=== PATIENT | male | born 1990 | race Caucasian/White ===

== ENCOUNTER → 2016-12-06 | Outpatient (CLI) | payer OTHER ==
--- NOTE | 2016-12-06 10:03 | MR ---
EXAMINATION TYPE: MR brown wo con DATE OF EXAM: 12/06/2016 9:31 AM COMPARISON: NONE HISTORY: cervicalgia, lumbago Multiplanar MultiSpin echo imaging of the cervical spine was performed. Comparison: none C2-C3: No evidence for degenerative disc disease. No disc bulge/herniation or protrusion. No Canal stenosis. Foramina are patent bilaterally. C3-C4: No evidence for degenerative disc disease. No disc bulge/herniation or protrusion. No Canal stenosis. Foramina are patent bilaterally. C4-C5: No evidence for degenerative disc disease. No disc bulge/herniation or protrusion. No Canal stenosis. Foramina are patent bilaterally. C5-C6: There is mild disc desiccation noted with mild posterior disc bulge. No adelaida herniation or pr otrusion. No evidence for central stenosis or foraminal encroachment. C6-C7: There is mild disc desiccation noted with mild posterior disc bulge. No adelaida herniation or pr otrusion. No evidence for central stenosis or foraminal encroachment. C7-T1: No evidence for degenerative disc disease. No disc bulge/herniation or protrusion. No Canal stenosis. Foramina are patent bilaterally. Cervical segments are intact. There is normal alignment. Cervical spinal cord is of normal signal. Craniovertebral junction relationships are within normal limits. IMPRESSION: 1. Mild degenerative disc disease and disc bulging as noted. EXAMINATION TYPE: MR stephanie doyle con DATE OF EXAM: 12/06/2016 9:31 AM COMPARISON: NONE HISTORY: cervicalgia, lumbago Multiplanar, MultiSpin echo imaging of the lumbar spine was performed. L1-L2: Normal disc appearance without desiccation. No herniation, protrusion or disc bulging. No ca nal stenosis is present. Foramina are patent bilaterally. L2-L3: Normal disc appearance without desiccation. No herniation, protrusion or disc bulging. No ca nal stenosis is present. Foramina are patent bilaterally. L3-L4: Normal disc appearance without desiccation. No herniation, protrusion or disc bulging. No ca nal stenosis is present. Foramina are patent bilaterally. L4-L5: Normal disc appearance without desiccation. No herniation, protrusion or disc bulging. No ca nal stenosis is present. Foramina are patent bilaterally. L5-S1: Moderate disc desiccation identified. Mild posterior central disc herniation without extrusion . Mild effacement ventral thecal sac. No definite lateral recess stenosis or foraminal encroachment. Lumbar segments are intact. No paraspinal masses are identified. Conus medullaris has a normal appe arance. IMPRESSION: 1. Degenerative disc disease at L5-S1 with milder disc herniation identified.
== END | disposition home or self-care (01) ==
LOC: RADMRIMAIN 08:45
PROVIDERS: ATTEND Psychiatry & Neurology Neurology
DX: M50.30 Other cervical disc degeneration, unspecified cervical region (principal); M50.222 Other cervical disc displacement at C5-C6 level; M51.37 Other intervertebral disc degeneration, lumbosacral region; M51.27 Other intervertebral disc displacement, lumbosacral region
CPT/HCPCS: 72141; 72148

== ENCOUNTER → 2017-04-18 | Outpatient (CLI) | payer OTHER ==
[2017-04-18 14:17] LABS: Basophils # (A) 0.1 k/uL (0-0.2); Basophils % (A) 1 %; CH 30.3; CHCM 34.2; Eosinophils # (A) 0.7 k/uL (0-0.7); Eosinophils % (A) 9 %; HCT 45.3 % (39.0-53.0); HGB 15.5 gm/dL (13.0-17.5); Luc # (Auto) 0.13; Luc % (Auto) 2; Lymphocytes # (A) 2.6 k/uL (1.0-4.8); Lymphocytes % (A) 36 %; MCH 30.5 pg (25.0-35.0); MCHC 34.3 g/dL (31.0-37.0); MCV 89.1 fL (80.0-100.0); Monocytes # (A) 0.4 k/uL (0-1.0); Monocytes % (A) 5 %; Neutrophils # (A) 3.5 k/uL (1.3-7.7); Neutrophils % (A) 47 %; RBC 5.09 m/uL (4.30-5.90); RDW 14.9 % (11.5-15.5); WBC 7.4 k/uL (3.8-10.6); WBC (Perox) 7.28
[2017-04-18 14:21] LABS: ALT 38 U/L (21-72); AST 28 U/L (17-59); Alkaline Phosphatase 78 U/L (38-126); Anion Gap 10 mmol/L; Blood Urea Nitrogen 13 mg/dL (9-20); C Reactive Protein <5.0 mg/L (<10.0); Calcium 9.2 mg/dL (8.4-10.2); Carbon Dioxide 25 mmol/L (22-30); Chloride 107 mmol/L (98-107); Creatine Kinase 194 U/L (55-170); Glucose 77 mg/dL (74-99); Non-African American GFR(MDRD) >60 (>60 ml/min/1.73 sqM); Potassium 4.3 mmol/L (3.5-5.1); Sodium 142 mmol/L (137-145); Total Bilirubin 0.3 mg/dL (0.2-1.3); Total Protein 6.3 g/dL (6.3-8.2)
[2017-04-18 15:17] LABS: Erythrocyte Sedimentation Rate 2 mm/hr (0-15)
== END | disposition home or self-care (01) ==
LOC: LABWHC1 13:00
PROVIDERS: ATTEND Psychiatry & Neurology Neurology
DX: M79.1 Myalgia (principal); R53.83 Other fatigue
CPT/HCPCS: 36415; 80053; 82085; 82550; 85025; 85652; 86140

== ENCOUNTER → 2017-11-18 | Outpatient (CLI) | payer OTHER ==
--- NOTE | 2017-11-18 07:52 | MR ---
EXAMINATION TYPE: MR brain wo con DATE OF EXAM: 11/18/2017 COMPARISON: NONE HISTORY: Muscle weakness - Bilateral leg weakness TECHNIQUE: Multiplanar, multisequence images of the brain and brainstem is performed without IV contrast. FINDINGS: Diffusion weighted images demonstrate no evidence of a recent infarct or other diffusion ab normality. 4 punctate foci of T2/FLAIR hyperintensity are seen within the subcortical white matter ( 2 within the left frontal lobe, one within the right frontal lobe, and one within the right parietal lobe all sub-3 mm). No surrounding vasogenic edema is seen. These are not in a pericallosal distribut ion. There is no extra-axial fluid collection. Incidentally noted prominent right periventricular spa ce is seen inferior to the basal ganglia. The ventricular system and cisternal spaces are normal in s ize and appearance. The brain volume is age appropriate. Midline structures demonstrate normal morphology. The craniocervical junction appears within normal limits. The dural venous sinuses appear patent. Minimal mucosal thickening is seen within the right m axillary sinus. The remaining visualized sinuses are clear and the globes are intact. IMPRESSION: 1. 4 punctate sub-3 mm foci of nonspecific white matter change. These are in an atypical distribution for demyelinating disease. Other considerations are for vasculitides or metabolic disorders. 2. Mucosal thickening within the right maxillary sinus.
== END | disposition home or self-care (01) ==
LOC: RADMRIMAIN 06:55
PROVIDERS: ATTEND Psychiatry & Neurology Neurology
DX: G37.9 Demyelinating disease of central nervous system, unspecified (principal); R90.82 White matter disease, unspecified; Z88.0 Allergy status to penicillin; Z88.1 Allergy status to other antibiotic agents
CPT/HCPCS: 70551

== ENCOUNTER 2018-09-11 05:51 | Emergency (ER) | payer OTHER ==
[2018-09-11 05:58] VITALS: BP 134/91; PULSE 81; RESP 18; TEMP 97.7
[2018-09-11] MEDS ORDERED: predniSONE 20 MG TAB PO STA (06:18)
[2018-09-11] MEDS ORDERED: KETOROLAC 30 MG/ML 1 ML VIAL IM STA (06:18)
[2018-09-11] MEDS ORDERED: ORPHENADRINE 30 MG/ML 2 ML VIAL IM STA (06:18)
--- NOTE | 2018-09-11 06:29 | ED ---
Back Pain HPI - General Chief Complaint: Back Pain/Injury Stated Complaint: Back pain Time Seen by Provider: 09/11/18 06:04 Source: patient Limitations: no limitations - History of Present Illness Initial Comments: Melina and is a 28-year-old male with a past history of chronic back pain and leg weakness for which she follows with neurology Dr. Martinez, patient has had multiple imaging modalities including MRI in the past which is revealed an L5- S1 disc herniation. Patient's treated in the past with epidural injections. He reports that he has chronic pain in his back but that since Saturday he has had worsening pain. He describes the pain as pressure like and aching radiating to his bilateral buttocks. Patient reports he has taken his home naproxen and Toradol on Saturday without relief of the pain. He reports that he is unable to get comfortable in bed last night due to the pain and was awake most of the night which prompted him to come to the emergency department for further evaluation. Patient denies any associated symptoms including fevers, chills, numbness in the lower extremities, change in bowel or bladder habits. Patient describes this pain is similar to previous pain but worse. Patient cannot identify any positive factors, he denies any recent injury or significant heavy lifting though he does have a very physically demanding job this is not changed recently. - Related Data Previous Rx's Medication Instructions Recorded Lidocaine 5% Patch [Lidoderm] 1 patch TOPICAL DAILY #30 patch 09/11/18 predniSONE [Deltasone] 40 mg PO DAILY 5 Days #10 tablet 09/11/18 Allergies Allergy/AdvReac Type Severity Reaction Status Date / Time amoxicillin Allergy Rash/Hives Verified 09/11/18 05:58 cephalexin [From Keflex] Allergy Rash/Hives Verified 09/11/18 05:58 Review of Systems ROS Statement: Those systems with pertinent positive or pertinent negative responses have been documented in the HPI. ROS Other: All systems not noted in ROS Statement are negative. Past Medical History Additional Past Medical History / Comment(s): back pain; meningitis; pneumothorax History of Any Multi-Drug Resistant Organisms: None Reported Past Surgical History: No Surgical Hx Reported Past Psychological History: No Psychological Hx Reported Smoking Status: Current every day smoker Past Alcohol Use History: None Reported Past Drug Use History: None Reported General Exam - General Exam Comments Initial Comments: Physical Exam GENERAL: Patient is well-developed and well-nourished. Patient is nontoxic and well- hydrated and is in no distress. HENT: Normocephalic, Atraumatic. EYES: PERRL, EOMI PULMONARY: Unlabored respirations. No audible rales rhonchi or wheezing was noted. CARDIOVASCULAR: There is a regular rate and rhythm without any murmurs gallops or rubs. ABDOMEN: Soft and nontender with normal bowel sounds. SKIN: Skin is clear with no lesions or rashes and otherwise unremarkable. : Deferred NEUROLOGIC: Patient is alert and oriented x3. Moving all extremities spontaneously Normal strength bilateral lower extremities Sensation bilateral lower extremities Normal patellar reflexes bilaterally MUSCULOSKELETAL: Normal extremities with adequate strength and full range of motion. No lower extremity swelling or edema. No calf tenderness. Paraspinal hypertonicity in the lumbar region greater on the right than the left PSYCHIATRIC: Normal psychiatric evaluation. Limitations: no limitations Limitations: no limitations Course Vital Signs 09/11/18 05:54 Temperature 97.7 F Pulse Rate 81 Respiratory 18 Rate Blood Pressure 134/91 O2 Sat by Pulse 99 Oximetry Medical Decision Making - Medical Decision Making The patient was seen and evaluated patient has a long history of chronic back pain for which he follows with neurology Patient reports worsening of his chronic back pain, denies any injury or excessive heavy lifting though he does have a very physically demanding job Patient reports pain associated. This morning he hadn't slept well and couldn' t work Physical exam is unremarkable, no signs of cauda equina, no red flag symptoms with this back pain History with anti-inflammatories, Lidoderm Patient not taking his anti-inflammatories regularly, advised to take them regularly as well as with muscle relaxers and follow up with his neurologist. Patient agreeable to plan I'll turn parameters were discussed questions again and care were answered and patient discharged home in stable condition Disposition Clinical Impression: Mechanical back pain Disposition: HOME SELF-CARE Instructions: Acute Low Back Pain (ED) Prescriptions: Lidocaine 5% Patch [Lidoderm] 1 patch TOPICAL DAILY #30 patch predniSONE [Deltasone] 40 mg PO DAILY 5 Days #10 tablet Is patient prescribed a controlled substance at d/c from ED?: No Referrals: Deborah Wilburn MD [Primary Care Provider] - 1-2 days Crow Martinez MD [STAFF PHYSICIAN] - 1-2 days Time of Disposition: 06:40
== END 2018-09-11 06:58 | disposition home or self-care (01) ==
LOC: EC 05:51
DX: G89.29 Other chronic pain (principal); M54.5 Low back pain; M62.89 Other specified disorders of muscle; F17.200 Nicotine dependence, unspecified, uncomplicated; Z88.0 Allergy status to penicillin; Z88.1 Allergy status to other antibiotic agents
CPT/HCPCS: 99283; 96372 ×2; J2360; J1885; J7512

== ENCOUNTER 2018-12-24 18:39 | Emergency (ER) | payer OTHER ==
[2018-12-24 19:03] VITALS: BP 102/76; PULSE 80; RESP 16; TEMP 98.1
[2018-12-24] MEDS ORDERED: DIAZEPAM 5 MG/ML 2 ML INJ IM ONE (19:20)
[2018-12-24] MEDS ORDERED: KETOROLAC 30 MG/ML 1 ML VIAL IM STA (19:20)
[2018-12-24] MEDS ORDERED: MORPHINE SULFATE 4 MG/ML SYRINGE IM STA (19:20)
--- NOTE | 2018-12-24 19:33 | ED ---
Back Pain HPI - General Chief Complaint: Back Pain/Injury Stated Complaint: Back injury Time Seen by Provider: 12/24/18 19:06 Source: patient Limitations: no limitations - History of Present Illness Initial Comments: 28-year-old male patient presents to the emergency department today for evaluation of increased low back pain. Patient states his pain worsened suddenly when he was lifting a transmission yesterday evening around 6 PM. Patient states he has been taking his home medication including tramadol and Flexeril but it is not helping. Patient states the pain starts in his mid low back and radiates down to his tailbone. He denies any radiation to the buttocks or legs. Denies any numbness or tingling to the lower extremities. Denies any saddle anesthesia or loss of bowel or bladder control. Patient is able to ambulate but states any weightbearing on the legs causes an increase to his low back pain. He denies any fevers or chills with this. Denies any abdominal pain. States he does have 3 herniated disks in his low back. Patient denies any headache, chest pain, shortness of breath, dizziness, abdominal pain, nausea, vomiting, or difficulties with bowel movements or urination. - Related Data Previous Rx's Medication Instructions Recorded Lidocaine 5% Patch [Lidoderm] 1 patch TOPICAL DAILY #30 patch 09/11/18 predniSONE [Deltasone] 40 mg PO DAILY 5 Days #10 tablet 09/11/18 Diazepam [Valium] 5 mg PO BID PRN 3 Days #6 tab 12/24/18 Hydrocodone/Acetaminophen [[place] 1 tab PO Q6HR PRN #12 tab 12/24/18 5-325] Ibuprofen [Motrin] 600 mg PO Q8HR PRN #30 tab 12/24/18 Allergies Allergy/AdvReac Type Severity Reaction Status Date / Time amoxicillin Allergy Rash/Hives Verified 12/24/18 19:03 cephalexin [From Keflex] Allergy Rash/Hives Verified 12/24/18 19:03 Review of Systems ROS Statement: Those systems with pertinent positive or pertinent negative responses have been documented in the HPI. ROS Other: All systems not noted in ROS Statement are negative. Past Medical History Additional Past Medical History / Comment(s): back pain; meningitis; pneumothorax History of Any Multi-Drug Resistant Organisms: None Reported Past Surgical History: No Surgical Hx Reported Past Psychological History: No Psychological Hx Reported Smoking Status: Current every day smoker Past Alcohol Use History: None Reported Past Drug Use History: None Reported General Exam Limitations: no limitations General appearance: alert, in no apparent distress, other (Physical well- developed, well-nourished adult male patient in no acute distress. Vital signs upon presentation are temperature 98.1F, pulse 80, respiration 16, blood pressure 102/76, pulse ox 98% on room air.) Eye exam: Present: normal appearance, PERRL, EOMI. Absent: scleral icterus, conjunctival injection, periorbital swelling ENT exam: Present: normal exam, normal oropharynx, mucous membranes moist Respiratory exam: Present: normal lung sounds bilaterally. Absent: respiratory distress, wheezes, rales, rhonchi, stridor Cardiovascular Exam: Present: regular rate, normal rhythm, normal heart sounds. Absent: systolic murmur, diastolic murmur, rubs, gallop, clicks GI/Abdominal exam: Present: soft, normal bowel sounds. Absent: distended, tenderness, guarding, rebound, rigid Back exam: Present: normal inspection. Absent: paraspinal tenderness, vertebral tenderness Neurological exam: Present: alert, oriented X3, CN II-XII intact, other (Strength of the lower extremities is 5/5. Skin to the lower extremities is pink, warm, dry. Cap refills less than 3 seconds. Post tibial pulses 2+ and equal bilaterally.) Psychiatric exam: Present: normal affect, normal mood Skin exam: Present: warm, dry, intact, normal color. Absent: rash Course Vital Signs 12/24/18 19:02 Temperature 98.1 F Pulse Rate 80 Respiratory 16 Rate Blood Pressure 102/76 O2 Sat by Pulse 98 Oximetry Medical Decision Making - Medical Decision Making 28-year-old male patient presents to the emergency department today for evaluation of increased low back pain after lifting a transmission from a car yesterday. Physical examination did not reveal any spinal tenderness or paraspinal tenderness. Patient is neurologically intact with no focal deficits. No concerning symptoms for cauda equina. Patient did receive IM medications here in the emergency department, he does report improvement of symptoms. Discharged home with a short course of pain medication and muscle relaxer. He is instructed follow up with his primary care physician for recheck in 1-2 days. Return parameters discussed in detail. He verbalizes understanding and agrees with this plan. - Radiology Data Radiology results: report reviewed, image reviewed 5 views of the lumbosacral spine were obtained. Report was reviewed in its entirety. Impression by Dr. Rowe shows normal lumbar spine. No change. Disposition Clinical Impression: Acute exacerbation of chronic low back pain Disposition: HOME SELF-CARE Condition: Good Instructions (If sedation given, give patient instructions): Acute Low Back Pain (ED) Additional Instructions: Stopped taking your home meds and take the new medications, do not take them together. Follow-up through primary care physician for recheck in 1-2 days. Return to the emergency department immediately for any new, worsening, or concerning symptoms. Prescriptions: Ibuprofen [Motrin] 600 mg PO Q8HR PRN #30 tab PRN Reason: Pain Hydrocodone/Acetaminophen [[place] 5-325] 1 tab PO Q6HR PRN #12 tab PRN Reason: Pain Diazepam [Valium] 5 mg PO BID PRN 3 Days #6 tab PRN Reason: Muscle Spasm Is patient prescribed a controlled substance at d/c from ED?: Yes When asked, does pt state using other controlled substances?: Yes If prescribed controlled substance>3 days was MAPS reviewed?: Prescribed <3 Days If opioid is for acute pain is fill amount 7 days or less?: Yes If Rx opioid, was Start Talking consent form obtained?: Yes Referrals: Deborah Wilburn MD [Primary Care Provider] - 1-2 days Time of Disposition: 21:04
--- NOTE | 2018-12-24 20:11 | XR ---
EXAMINATION TYPE: XR lumbosacral spine min 4V DATE OF EXAM: 12/24/2018 COMPARISON: 08/16/2016 HISTORY: Low back pain TECHNIQUE: 5 views FINDINGS: Lumbar vertebra have normal spacing and alignment. Posterior elements are intact. Sacroilia c joints appear normal. IMPRESSION: Normal lumbar spine. No change.
== END 2018-12-24 21:09 | disposition home or self-care (01) ==
LOC: EC 18:39
DX: M54.5 Low back pain (principal); G89.29 Other chronic pain; F17.200 Nicotine dependence, unspecified, uncomplicated; Z88.0 Allergy status to penicillin; Z88.1 Allergy status to other antibiotic agents
CPT/HCPCS: 72110; 99283; 96372 ×3; J2270; J3360; J1885

== ENCOUNTER → 2018-12-29 | Outpatient (CLI) | payer OTHER ==
--- NOTE | 2018-12-29 15:13 | MR ---
EXAMINATION TYPE: MR lumbar spine wo/w con DATE OF EXAM: 12/29/2018 COMPARISON: 12/06/2016 HISTORY: 28-year-old male with pain, L5 Herniation Technique: Multiplanar, multisequence images of the lumbar spine were obtained before and after admin istration of 6 mL intravenous Gadavist gadolinium contrast. FINDINGS: Vertebral body heights are preserved and alignment is maintained. Minimal diffuse disc bulge at L4-L5 and larger diffuse disc bulge with superimposed central disc prot rusion at L5-S1 with mild disc height loss and disc desiccation. Mild facet arthropathy mid to lower lumbar spine. Overall findings are relatively similar though this seems to have been some healing of the posterior annular fissure at L5-S1. No suspicious bone marrow replacement. Conus medullaris is normal. No spinal canal stenosis. No significant neural foraminal stenosis. IMPRESSION: 1. Relatively similar moderate degenerative disc disease at L5-S1 though with some interval healing o f the previous posterior annular fissure here. 2. Mild facet arthropathy mid to lower lumbar spine. 3. No large focal disc herniation or significant spinal canal or neuroforaminal stenosis.
== END | disposition home or self-care (01) ==
LOC: RADMRIMAIN 06:21
PROVIDERS: ATTEND Physical Medicine & Rehabilitation
DX: M51.17 Intervertebral disc disorders with radiculopathy, lumbosacral region (principal); M46.96 Unspecified inflammatory spondylopathy, lumbar region
CPT/HCPCS: 72158; A9585

== ENCOUNTER → 2019-05-26 | Outpatient (CLI) | payer OTHER ==
--- NOTE | 2019-05-26 15:50 | NM ---
EXAMINATION TYPE: NM bone SPECT DATE OF EXAM: 05/26/2019 COMPARISON: MRI 12/29/2018, x-ray 12/24/2018 HISTORY: Back pain TECHNIQUE: After the intravenous administration of 22.5 mCi Tc 99m MDP. Images acquired 3 hours pos t injection. SPECT views of the lumbar spine are submitted. Faint uptake L5-S1 corresponds to the area of degenerative disc disease. IMPRESSION: Faint uptake involving the L5-S1 level corresponds to the previously noted degenerative d isc disease.
== END | disposition home or self-care (01) ==
LOC: RADNMMAIN 10:35
PROVIDERS: ATTEND Orthopaedic Surgery Orthopaedic Surgery of the Spine
DX: M51.17 Intervertebral disc disorders with radiculopathy, lumbosacral region (principal)
CPT/HCPCS: 78320; A9503

== ENCOUNTER → 2020-10-07 | Outpatient (CLI) | payer OTHER ==
[2020-10-08 02:33] LABS: Albumin 5.1 g/dL (3.80-4.90); Anion Gap 10.6 mmol/L (4.00-12.00); BUN/Creat Ratio 11.25 Ratio (12.00-20.00); Calcium 9.7 mg/dL (8.7-10.3); Carbon Dioxide 23.4 mmol/L (21.6-31.8); Globulin 1.7 g/dL (1.6-3.3); Non-African American GFR(CKD) 118.2 (60.0-200.0); Potassium 4.4 mmol/L (3.5-5.5); Total Bilirubin 0.5 mg/dL (0.3-1.2); Total Protein 6.8 g/dL (6.2-8.2)
== END | disposition home or self-care (01) ==
LOC: LABWHC1 16:08
PROVIDERS: ATTEND Surgery
DX: K40.90 Unilateral inguinal hernia, without obstruction or gangrene, not specified as recurrent (principal)
CPT/HCPCS: 36415; 80053

== ENCOUNTER 2020-10-12 06:07 | Day surgery (SDC) | payer OTHER ==
[2020-10-10 18:34] VITALS: BMI 19.2
[~2020-10-12 06:07] MED LIST: ACETAMINOPHEN TAB 500 MG TAB PO PRN; CLINDAMYCIN 900 MG in DEXTROSE 5% IN WATER 50 ML IVPB PRN; HEPARIN SODIUM,PORCINE 5,000 UNIT/ML 1 ML VIAL SQ PRN
[2020-10-12] MEDS ORDERED: ONDANSETRON 4 MG/2 ML VIAL ONE (06:30)
[2020-10-12] MEDS ORDERED: LACTATED RINGERS 1,000 ML IV ONE ×3 (06:41→08:40)
[2020-10-12] MEDS ORDERED: LIDOCAINE 1% (10MG/ML) FOR IV START INTRADERMA ONE (06:42)
[2020-10-12] MEDS ORDERED: DEXAMETHASONE SOD PHOSPHATE 4 MG/ML 1 ML VIAL IV ONE (06:45)
[2020-10-12] MEDS ORDERED: MIDAZOLAM 2 MG/2 ML VIAL IV ONE ×2 (06:53→06:54)
[2020-10-12] MEDS ORDERED: SUCCINYLCHOLINE CHLORIDE 100 MG/5 ML SYR IV ONE (07:41)
[2020-10-12] MEDS ORDERED: LIDOCAINE 1% INJ 10MG/ML (20 ML MDV) ONE (07:41)
[2020-10-12] MEDS ORDERED: fentaNYL (PF) 50 MCG/ML 2 ML AMP ONE (07:41)
[2020-10-12] MEDS ORDERED: MIDAZOLAM 2 MG/2 ML VIAL ONE (07:41)
[2020-10-12] MEDS ORDERED: PROPOFOL 10 MG/ML 20 ML VIAL IV ONE (07:41)
[2020-10-12] MEDS ORDERED: ROPIVACAINE 5 MG/ML 30 ML VIAL ONE (07:41)
[2020-10-12] MEDS ORDERED: ROCURONIUM 10 MG/ML (10 ML VIAL) IV ONE (07:41)
[2020-10-12] MEDS ORDERED: NEOSTIGMINE 1 MG/ML 10 ML VIAL ONE (07:41)
[2020-10-12] MEDS ORDERED: GLYCOPYRROLATE 0.2 MG/ML 2 ML VIAL ONE (07:41)
[2020-10-12] MEDS ORDERED: BUPIVACAINE (PF) 0.25% 30 ML VIAL SQ ONE (08:09)
[2020-10-12 08:44] VITALS: TEMP 97.2
[2020-10-12] MEDS ORDERED: HYDROmorphone 0.5 MG/0.5 ML SYRINGE IVP ONE (09:13)
[2020-10-12] MEDS ORDERED: HYDROmorphone 0.5 MG/0.5 ML SYRINGE SQ ONE (09:13)
[2020-10-12] MEDS: MEPERIDINE 50 MG/ML SYRINGE IVP ONE ×2 (09:19→09:24)
[2020-10-12] MEDS ORDERED: diphenhydrAMINE 50 MG/ML 1 ML VIAL IVP ONE (09:28)
[2020-10-12 09:43] VITALS: RESP 18
--- NOTE | 2020-10-12 10:32 | P.GSHP ---
History of Present Illness H&P Date: 10/12/20 Chief Complaint: Left inguinal hernia This a 28-year-old male who has developed left inguinal hernia. Patient is today for laparoscopic robotic-assisted repair. Past Medical History Past Medical History: Musculoskeletal Disorder, Skin Disorder Additional Past Medical History / Comment(s): Back pain, 4 herniated discs S1 & L2-L5, tingling BLE; Hx spinal meningitis, bacterial. Hx of erythema multiform E skin reaction to AB Rx. Hx Spontaneous pneumothorax 2016 est. Lt inguinal hernia currently. History of Any Multi-Drug Resistant Organisms: None Reported Past Surgical History: No Surgical Hx Reported Additional Past Anesthesia/Blood Transfusion Reaction / Comment(s): no previous anesthesia Smoking Status: Current every day smoker - Past Family History Mother Family Medical History: No Reported History Medications and Allergies Home Medications Medication Instructions Recorded Confirmed Type Acetaminophen [Tylenol Extra 1,000 mg PO DIRECTED PRN 10/10/20 10/10/20 History Strength] Cyclobenzaprine [Flexeril] 10 mg PO HS 10/10/20 10/10/20 History Multivitamin [Multivitamins Adult 2 each PO DAILY 10/10/20 10/10/20 History Gummies] oxyCODONE-APAP 10-325MG [Percocet 1 tab PO QID PRN 10/10/20 10/10/20 History 10-325 mg] Acetaminophen Tab [Tylenol] 650 mg PO Q6H #30 tab 10/12/20 Rx Docusate [Colace] 100 mg PO BID #20 capsule 10/12/20 Rx Ibuprofen [Motrin] 600 mg PO Q6HR PRN #40 tab 10/12/20 Rx oxyCODONE HCL [OxyIR] 5 mg PO Q4H PRN 3 Days #18 tab 10/12/20 Rx Allergies Allergy/AdvReac Type Severity Reaction Status Date / Time amoxicillin Allergy Rash/Hives Verified 10/12/20 06:21 cephalexin [From Keflex] Allergy Rash/Hives Verified 10/12/20 06:21 Surgical - Exam Vital Signs Temp Pulse Resp BP Pulse Ox 96.6 F L 83 16 116/79 94 L 10/12/20 06:28 10/12/20 06:28 10/12/20 06:28 10/12/20 06:28 10/12/20 06:28 - General well developed, well nourished, no distress - Eyes PERRL - ENT normal pinna - Neck no masses - Respiratory normal expansion - Cardiovascular Rhythm: regular - Abdomen Abdomen: soft, non tender Hernia: inguinal (Left) Assessment and Plan Plan: Left inguinal hernia. We'll perform laparoscopic robotic-assisted repair.
--- NOTE | 2020-10-12 10:37 | P.OP ---
Date of Procedure: 10/12/20 Preoperative Diagnosis: Left inguinal hernia Postoperative Diagnosis: Left inguinal hernia Procedure(s) Performed: Laparoscopic robotic-assisted repair of left inguinal hernia Anesthesia: JUNE Surgeon: Ricky Strickland Estimated Blood Loss (ml): 5 Pathology: none sent Condition: stable Disposition: PACU Description of Procedure: The patient's placed on the operating table in the supine position. The patient received general anesthesia. The patient's abdomen was prepped and draped in usual sterile fashion. The skin was anesthetized 1% local Xylocaine at the incision sites. Using an 11 blade a skin incision was made at the umbilicus. The fascia was grasped with a Luci and then the peritoneal cavity was entered with the Veress needle. Position of the Veress needle was confirmed with a positive drop test. After adequate insufflation a 5 mm trocar was placed into the peritoneal cavity. The Laparoscope was placed the peritoneal cavity. And a robotic 8 mm trocar was placed in the right lateral position and then another 8 mm robotic trochars placed in the left lateral position. The original 5 mm trocar was exchanged for a 12 mm trocar. The patient was placed in reverse Trendelenburg and then the patient was docked to the robot. Next the peritoneum over top of the hernia was incised and then using blunt and sharp dissection and electrocautery the hernia sac was dissected free from the floor of the inguinal canal. The hernia sac was completely reduced into the peritoneal cavity. And then using the Pro contract technical writer mesh the hernia was repaired. The peritoneum was then sutured with 20V lock suture. The patient was then undocked the robot. The needle was withdrawn from the peritoneal cavity. The umbilical trocar site was closed with 0 Ethibond suture. The skin was closed interrupted 3-0 Monocryl suture. Dermabond dressing was applied. Patient was sent to recovery in stable condition.
[2020-10-12 11:11] VITALS: BP 134/78; PULSE 78
--- NOTE | 2020-10-18 11:23 | P.ANPRN ---
Procedure Note - Anesthesia - Nerve Block Performed Left Transversus Abdominis Single Time Out Performed: Yes ([id number]) Date of Procedure: 10/12/20 Procedure Start Time: 06:54 Procedure Stop Time: 07:01 Location of Patient: PreOp Indication: Acute Post-Operative Pain, Requested by Surgeon Specifically requested for management of pain by DrMaty: Ricky Strickland Sedation Type: Sedate with meaningful contact maintained Preparation: Sterile Prep Position: Supine Catheter: None Needle Types: Pajunk Needle Gauge: 21 Ultrasound used to visualize needle placement: Yes Ultrasound used to observe medication spread: Yes Injectate: 0.5% Ropivacaine (see comment for volume) (25cc) Blood Aspirated: No Pain Paresthesia on Injection Noted: No Resistance on Injection: Normal Image Stored and Saved: Yes Events: Uneventful and Well Tolerated
== END 2020-10-12 11:16 | disposition home or self-care (01) ==
LOC: OR 06:07
PROVIDERS: ATTEND Surgery
DX: K40.90 Unilateral inguinal hernia, without obstruction or gangrene, not specified as recurrent (principal); M51.27 Other intervertebral disc displacement, lumbosacral region; R20.2 Paresthesia of skin; F17.200 Nicotine dependence, unspecified, uncomplicated; Z86.61 Personal history of infections of the central nervous system; Z87.2 Personal history of diseases of the skin and subcutaneous tissue; Z87.09 Personal history of other diseases of the respiratory system; Z79.899 Other long term (current) drug therapy; Z79.1 Long term (current) use of non-steroidal anti-inflammatories (NSAID); Z79.891 Long term (current) use of opiate analgesic; Z88.0 Allergy status to penicillin; Z88.1 Allergy status to other antibiotic agents
CPT/HCPCS: 49650; S2900; 64486

== ENCOUNTER → 2021-08-15 | Outpatient (CLI) | payer OTHER ==
--- NOTE | 2021-08-15 13:21 | MR ---
EXAMINATION TYPE: MR lumbar spine wo/w con DATE OF EXAM: 08/15/2021 COMPARISON: Prior MRI lumbar spine December 29, 2018. Lumbar spine x-ray December 24, 2018 HISTORY: Low back pain for 10-12 years that radiates down both legs. DDD with radiculopathy per order . TECHNIQUE: Multiplanar, multisequence images of the lumbar spine is performed without and with IV contrast, util izing 8 mL intravenous Gadavist FINDINGS: Sagittal images of the lumbar spine show vertebral body heights and alignment to remain sat isfactory. Persistent disc desiccation L5-S1 level. Disc space heights are maintained. The conus med ullaris is normal in position and signal ending inferior L1 level. The bone marrow signal intensity is within normal limits. Some nonspecific lumbar nerve enhancement identified seen best on sagittal i mages without suspicious thickening or nodular-type enhancement. Axial images show T12-L1, L1-L2, L2-L3, and L3-L4 levels all to remain within normal limits. Axial images at the L4-L5 level redemonstrate mild facet arthropathy bilaterally. No significant disc herniation. Spinal canal preserved. The bilateral neural foramina. No significant change from prior. Axial images at the L5-S1 level redemonstrate mild to moderate facet arthropathy bilaterally. Stable central disc protrusion. Spinal canal preserved. Patent bilateral neural foramina. Paraspinal muscle bulk is maintained. IMPRESSION: Stable mild degenerative changes lower lumbar spine. No significant change from prior MRI .
== END | disposition home or self-care (01) ==
LOC: RADMRIMAIN 12:20
PROVIDERS: ATTEND Physical Medicine & Rehabilitation
DX: M47.26 Other spondylosis with radiculopathy, lumbar region (principal); M51.16 Intervertebral disc disorders with radiculopathy, lumbar region
CPT/HCPCS: 72158; A9585

== ENCOUNTER 2022-12-30 03:48 | Emergency (ER) | payer OTHER ==
[2022-12-30 03:55] VITALS: TEMP 97.8
[2022-12-30] MEDS ORDERED: HYDROmorphone 0.5 MG/0.5 ML SYRINGE IVP STA (04:33)
[2022-12-30] MEDS ORDERED: SODIUM CHLORIDE 0.9% 1,000 ML IV STA (04:33)
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
[2022-12-30 05:19] LABS: Basophils # (A) 0.1 k/uL (0-0.2); Basophils % (A) 0 %; Eosinophils # (A) 0.3 k/uL (0-0.7); Eosinophils % (A) 2 %; HCT 42.7 % (39.0-53.0); HGB 14.9 gm/dL (13.0-17.5); Lymphocytes # (A) 2.5 k/uL (1.0-4.8); Lymphocytes % (A) 17 %; MCH 30.1 pg (25.0-35.0); MCHC 34.9 g/dL (31.0-37.0); MCV 86.1 fL (80.0-100.0); Mean Platelet Volume 8.2; Monocytes # (A) 0.6 k/uL (0-1.0); Monocytes % (A) 4 %; Neutrophils # (A) 11.5 k/uL (1.3-7.7); Neutrophils % (A) 76 %; Platelet Count 184 k/uL (150-450); RBC 4.96 m/uL (4.30-5.90); RDW 13.7 % (11.5-15.5); WBC 15.1 k/uL (3.8-10.6)
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
[2022-12-30 05:26] LABS: ALT 27 U/L (4-49); AST 32 U/L (17-59); African American GFR (CKD) >90 (>60 ml/min/1.73 sqM); Albumin 3.8 g/dL (3.5-5.0); Alcohol <10 mg/dL; Alkaline Phosphatase 56 U/L (38-126); Anion Gap 9 mmol/L; Blood Urea Nitrogen 11 mg/dL (9-20); Calcium 8.4 mg/dL (8.4-10.2); Carbon Dioxide 22 mmol/L (22-30); Chloride 106 mmol/L (98-107); Glucose 87 mg/dL (74-99); Non-African American GFR(CKD) >90 (>60 ml/min/1.73 sqM); Potassium 4.4 mmol/L (3.5-5.1); Sodium 137 mmol/L (137-145); Total Bilirubin 0.3 mg/dL (0.2-1.3); Total Protein 5.9 g/dL (6.3-8.2)
[2022-12-30 05:39] LABS: Prothrombin Time 10.8 sec (9.0-12.0)
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
[2022-12-30] MEDS ORDERED: LIDOCAINE 1% INJ 10MG/ML (30 ML VIAL-PF) SQ ONE (06:05)
[2022-12-30] MEDS ORDERED: DIPH,PERTUS(ACELL)TETVAC-LF 0.5 ML VIAL IM ONE (06:10)
[2022-12-30] MEDS ORDERED: HYDROmorphone 1 MG/ML 1 ML SYRINGE IVP STA (06:10)
[2022-12-30 07:07] VITALS: BP 124/79; PULSE 82; RESP 16
== END 2022-12-30 07:07 | disposition home or self-care (01) ==
LOC: EC 03:48
DX: S01.01XA Laceration without foreign body of scalp, initial encounter (principal); S01.81XA Laceration without foreign body of other part of head, initial encounter; F17.200 Nicotine dependence, unspecified, uncomplicated; Z88.1 Allergy status to other antibiotic agents; Z88.0 Allergy status to penicillin; Z23 Encounter for immunization; V49.40XA Driver injured in collision with unspecified motor vehicles in traffic accident, initial encounter
CPT/HCPCS: 36415; 80053; 84484; 85025; 85610; 85730; 80320; 72129; 72125; 72132; 70450; 71260; 74177; 90715; 99284; 90471; 96374; 96376; 96361; 12002; 12011; J2001; J1170 ×2; Q9967